=== PATIENT | female | born 2000 | race Caucasian/White ===

== ENCOUNTER 2020-01-02 17:20 | Emergency (ER) | payer OTHER, SELFPAY ==
[~2020-01-02] VITALS: Ht 160 cm; Wt 63.6 kg
[2020-01-02] MEDS ORDERED: NOXI1TAB PO (17:44)
[2020-01-02] MEDS ORDERED: PRED20TA PO (18:56)
[2020-01-02] MEDS ORDERED: COMBAER6 INH (18:56)
[2020-01-02] MEDS ORDERED: predniSONE 20 MG TAB PO ONE (19:00)
[2020-01-02 19:18] VITALS: BP 145/74
== END 2020-01-02 19:19 | disposition home or self-care (01) ==
LOC: EDBD 17:20 → M ED 17:20
DX: J45.901 Unspecified asthma with (acute) exacerbation (principal)

== ENCOUNTER 2022-06-11 20:46 | Emergency (ER) | payer MEDICAID, OTHER ==
[~2022-06-11] VITALS: Ht 160 cm; Wt 69.6 kg
[~2022-06-11 20:46] MED LIST: COMBAER6 INH; NOXI1TAB PO; PRED20TA PO
[2022-06-11] MEDS ORDERED: ALBU6.7H6 INH (20:59)
[2022-06-12 00:02] VITALS: BP 108/59
== END 2022-06-12 00:03 | disposition home or self-care (01) ==
LOC: M ED 20:46
DX: S52.502A Unspecified fracture of the lower end of left radius, initial encounter for closed fracture (principal); W07.XXXA Fall from chair, initial encounter; Y92.019 Unspecified place in single-family (private) house as the place of occurrence of the external cause; Y93.89 Activity, other specified; Y99.8 Other external cause status

== ENCOUNTER → 2023-06-19 | Outpatient (CLI) | payer OTHER ==
[~2023-06-19] MED LIST changes: +ALBU6.7H6 INH
[2023-06-19 18:21] LABS: URINE PREG TEST NEGATIVE (NEGATIVE)
== END ==
LOC: M LAB 17:38
PROVIDERS: ATTEND Emergency Medicine
DX: R30.0 Dysuria (principal)